=== PATIENT | male | born 1990 | race Asian ===

== ENCOUNTER → 2019-04-09 | Outpatient (CLI) | payer OTHER | LOC: COL.RAD 12:11 | DX: R31.29 Other microscopic hematuria (principal); R10.9 Unspecified abdominal pain ==

== ENCOUNTER → 2019-06-21 | Outpatient (CLI) | payer OTHER | LOC: COL.RAD 08:24 | DX: R31.29 Other microscopic hematuria (principal); R81 Glycosuria | CPT/HCPCS: Q9967 ==

== ENCOUNTER 2019-08-24 | Emergency (ER) | payer OTHER ==
[~2019-08-24] VITALS: Ht 177.8 cm; Wt 87.0 kg
[2019-08-24 00:11] VITALS: BP 137/80; TEMP 98.2
[2019-08-24 01:20] VITALS: PULSE 78
== END 2019-08-24 01:19 | disposition home or self-care (01) ==
LOC: COL.ER
DX: S51.011A Laceration without foreign body of right elbow, initial encounter (principal); X58.XXXA Exposure to other specified factors, initial encounter; Y92.009 Unspecified place in unspecified non-institutional (private) residence as the place of occurrence of the external cause

== ENCOUNTER → 2019-09-04 | Outpatient (CLI) | payer OTHER ==
[2019-09-04 10:05] VITALS: BP 125/87; PULSE 86; TEMP 98.3
== END ==
LOC: COL.ER 09:50
DX: S51.011D Laceration without foreign body of right elbow, subsequent encounter (principal); X58.XXXD Exposure to other specified factors, subsequent encounter